=== PATIENT | male | born 1950 | race African-American/Black ===

== ENCOUNTER 2016-09-27 16:27 | Emergency (ER) | payer MEDICARE | END 2016-09-27 18:06 | disposition left against medical advice (07) | LOC: D.ER 16:27 | DX: I10 Essential (primary) hypertension (principal) ==

== ENCOUNTER 2018-03-25 00:31 | Emergency (ER) | payer OTHER ==
[~2018-03-25] VITALS: Ht 177.8 cm; Wt 117.7 kg
[2018-03-25 00:34] VITALS: Ht 177.8 cm; Wt 117.7 kg
[2018-03-25] MEDS ORDERED: NORVASC10 MG PO (01:52)
[2018-03-25 02:14] VITALS: BP 196/91
== END 2018-03-25 02:16 | disposition home or self-care (01) ==
LOC: D.ER 00:31
DX: R20.2 Paresthesia of skin (principal); I10 Essential (primary) hypertension

== ENCOUNTER 2019-09-04 18:00 | Emergency (ER) | payer OTHER ==
[~2019-09-04] VITALS: Ht 177.8 cm; Wt 116.4 kg
[~2019-09-04 18:00] MED LIST: NORVASC10 MG PO
[2019-09-04 18:08] VITALS: Ht 177.8 cm; Wt 116.4 kg
[2019-09-04 18:10] LABS: BASOPHILS 0.6 % (0-2); EOSINOPHILS 8.5 % (0-7); HEMATOCRIT 41.1 % (42.0-54.0); HEMOGLOBIN 13.5 g/dL (13.5-17.5); IMMATURE GRANULOCYTES 0.2 % (0-5); LYMPHOCYTES 44.8 % (15-50); MCHC 32.8 g/dL (31.0-37.0); MCV 91.3 fL (80.0-100.0); MONOCYTES 9.1 % (2-11); NEUTROPHILS 36.8 % (40-80); PLATELET COUNT 220 10x3/uL (130-400); RDW 13.3 % (11.5-14.5); WBC 4.9 10x3/uL (4.8-10.8)
[2019-09-04 18:22] LABS: CALC OSMOLALITY 292 mosm/kg (275-300); CALCIUM 9.2 mg/dL (8.5-10.1); CARBON DIOXIDE 27.8 mmol/L (21.0-32.0); CHLORIDE - SERUM 110 mmol/L (98-107); CREATININE - SERUM 1.3 mg/dL (0.6-1.3); GLUCOSE 91 mg/dL (74-106); POTASSIUM - SERUM 4.3 mmol/L (3.5-5.1); SODIUM 147 mmol/L (136-145); UREA NITROGEN 16 mg/dL (7-18); eGFR NON AFRICAN AMERICAN 58 mL/min (90-120)
[2019-09-04 18:28] LABS: APTT 27.5 SECONDS (22.8-39.4); INR 0.96 (0.85-1.17); PROTIME 12.3 SECONDS (11.6-15.0)
[2019-09-04 18:37] LABS: ALBUMIN 3.7 g/dL (3.4-5.0); ALKALINE PHOSPHATASE 134 U/L (46-116); ALT (SGPT) 29 U/L (10-68); BILIRUBIN - TOTAL 0.21 mg/dL (0.2-1.3); CKMB 2.6 U/L (0.0-3.6); CREATINE KINASE 202 UL (21-232); MAGNESIUM - SERUM 2.1 mg/dL (1.8-2.4); PROTEIN - SERUM 7.4 g/dL (6.4-8.2); THYROID STIMULATING HORMONE 2.53 uIU/mL (0.36-3.74); TROPONIN-I < 0.017 ng/mL (0.000-0.060)
[2019-09-04 21:44] VITALS: BP 168/71
== END 2019-09-04 21:48 | disposition short-term general hospital (02) ==
LOC: D.ER 18:00
PROVIDERS: Emergency Medicine
DX: I63.9 Cerebral infarction, unspecified (principal); G81.94 Hemiplegia, unspecified affecting left nondominant side; I10 Essential (primary) hypertension

== ENCOUNTER 2019-12-06 09:29 | Emergency (ER) | payer OTHER ==
[~2019-12-06] VITALS: Ht 177.8 cm; Wt 111.8 kg
[~2019-12-06 09:29] MED LIST changes: +ASPIRIN325 MG PO; +HCTZ25 MG PO; +HYDRALAZINE HCL50 MG PO; +LIPITOR40 MG PO; +LOTREL 10-40 M1 EACH PO; +PLAVIX75 MG PO
[2019-12-06 09:32] VITALS: Ht 177.8 cm; Wt 111.8 kg
[2019-12-06 09:46] LABS: BASOPHILS 0.2 % (0-2); EOSINOPHILS 10.7 % (0-7); HEMOGLOBIN 13.3 g/dL (13.5-17.5); IMMATURE GRANULOCYTES 0.2 % (0-5); LYMPHOCYTES 33.2 % (15-50); MCH 29.8 pg (26.0-34.0); MCHC 31.7 g/dL (31.0-37.0); MEAN PLATELET VOLUME 9.9 fL (7.4-10.4); NEUTROPHILS 44.7 % (40-80); PLATELET COUNT 227 10x3/uL (130-400); RBC 4.47 10x6/uL (4.20-6.10); RDW 13.5 % (11.5-14.5)
[2019-12-06 10:00] LABS: INR 0.99 (0.85-1.17)
[2019-12-06 10:01] LABS: APTT 31.2 SECONDS (22.8-39.4)
[2019-12-06 10:04] LABS: CALC OSMOLALITY 284 mosm/kg (275-300); CALCIUM 9.3 mg/dL (8.5-10.1); CARBON DIOXIDE 29.9 mmol/L (21.0-32.0); CHLORIDE - SERUM 107 mmol/L (98-107); CREATININE - SERUM 1.2 mg/dL (0.6-1.3); GLUCOSE 110 mg/dL (74-106); SODIUM 142 mmol/L (136-145); UREA NITROGEN 14 mg/dL (7-18); eGFR NON AFRICAN AMERICAN 64 mL/min (90-120)
[2019-12-06 10:18] LABS: ALBUMIN 3.9 g/dL (3.4-5.0); ALKALINE PHOSPHATASE 132 U/L (30-120); ALT (SGPT) 25 U/L (10-68); BILIRUBIN - TOTAL 0.53 mg/dL (0.2-1.3); CKMB 2.2 U/L (0.0-3.6); CREATINE KINASE 235 UL (21-232); MAGNESIUM - SERUM 2.5 mg/dL (1.8-2.4); PROTEIN - SERUM 7.6 g/dL (6.4-8.2); THYROID STIMULATING HORMONE 1.64 uIU/mL (0.36-3.74)
[2019-12-06 10:26] LABS: TROPONIN-I < 0.017 ng/mL (0.000-0.060)
[2019-12-06] MEDS ORDERED: TRIAMTERENE-HC1 EAC6 PO (13:29)
[2019-12-06 14:03] VITALS: BP 156/81
== END 2019-12-06 14:09 | disposition home or self-care (01) ==
LOC: D.ER 09:29
PROVIDERS: Family Medicine
DX: I10 Essential (primary) hypertension (principal); R20.0 Anesthesia of skin; Z91.14 Patient's other noncompliance with medication regimen; Z86.73 Personal history of transient ischemic attack (TIA), and cerebral infarction without residual deficits; E78.5 Hyperlipidemia, unspecified

== ENCOUNTER → 2020-11-23 08:06 | Outpatient (CLI) | payer MEDICARE ==
[2019-12-06 09:32] VITALS: BMI 35.3
[~2020-11-23 08:06] MED LIST changes: +TRIAMTERENE-HC1 EAC6 PO
--- NOTE | 2020-11-25 10:01 | EC ---
PATIENT:SHAILESH RYAN DATE OF SERVICE: 11/23/20 SEX: M MEDICAL RECORD: [id number] DATE OF : [birth year] LOCATION:[facility] AGE OF PATIENT: 70 ADMISSION DATE: 11/23/20 REFERRING PHYSICIAN: INTERPRETING PHYSICIAN: SHASHANK HERRERA MD ECHOCARDIOGRAM REPORT ECHO CHARGES 4 ECHO COMPLETE Date: 11/23/20 CLINICAL DIAGNOSIS: HEART MURMUR/ ANGINA HX OF HTN ECHOCARDIOGRAPHIC MEASUREMENTS (adult normal given) AC root (d.<3.7cm) 3.8 cm LV Septum d (<1.2 cm> 2.3 cm Valve Excursion 1.2 cm LV Septum (systole) 2.7 cm Left Atria (s.<4.0cm> 4.4 cm LVPW d(<1.2cm) 2.2 cm RV (d.<2.3cm) 4.0 cm LVPW (sytole) 2.4 cm LV diastole(<5.6CM) 4.9 cm MV E-F(>70mm/sec) cm LV systole 3.1 cm LVOT Diameter 1.8 cm MV exc.(>10mm) 1.4 cm Est.ejection fraction (50-75%) % DOPPLER: LVIT cm/sec A 697.0cm/sec E 80.0 cm/sec LA cm/sec RVSP 43 mmHg LVOT 100 cm/sec AOP1/2T m/s Asc. Ao 158 cm/sec RVOT 82 cm/sec RA cm/sec PA 103 cm/sec AV Gradient Peak 10.02mmHg AV Mean 5.75 mmHg AV Area 1.8 cm MV Gradient Peak 7.87 mmHg MV Mean 2.76 mmHg MV Area cm COMMENTS: GONZÁLEZ TRACED AT 3.0 CM2 Mechanical Energy Engineer: 2 ROSSANA GARDNER Disc Pad Grinder: 3 Dr. Tariq TAPE# PACS Pericardial Effusion N DATE OF SERVICE: Adequate 2D, color-flow imaging, spectral Doppler, and M-Mode. FINDINGS: LVH is present. LV internal dimensions are normal. Wall motion is normal. EF is greater than or equal to 55%. Aortic valve is sclerotic. No evidence of stenosis by Doppler interrogation. Left atrium is dilated at 4.4 cm. Mitral valve shows no prolapse. Trace MR. Right side is grossly normal. Trace TR. ECHOCARDIOGRAM REPORT [id number] SHAILESH RYAN TRANSINT:[id number] Voice Confirmation ID: [id number] DOCUMENT ID: [id number] SHASHANK HERRERA MD at 1001 CC: [id number] DICTATION DATE: 11/24/20 1521 MANAGER HEMATOLOGY: 11/24/20 2254 [facility] CLI 11/23/20 [place] [id number] [place] [id number]
== END | disposition home or self-care (01) ==
LOC: D.HCCARDIO 08:06
PROVIDERS: ATTEND Internal Medicine Cardiovascular Disease
DX: I20.9 Angina pectoris, unspecified (principal)

== ENCOUNTER → 2020-12-31 12:33 | Outpatient (CLI) | payer MEDICARE ==
[2019-12-06 09:32] VITALS: BMI 35.3
== END | disposition home or self-care (01) ==
LOC: D.RAD 12:33
PROVIDERS: ATTEND Emergency Medicine
DX: M25.562 Pain in left knee (principal)